=== PATIENT | female | born 1935 | race Caucasian/White ===

== ENCOUNTER 2020-12-27 12:25 | Outpatient (CLI) | payer MEDICARE, OTHER | END 2020-12-27 12:26 | disposition home or self-care (01) | LOC: CSHMRI 12:25 | PROVIDERS: ATTEND Orthopaedic Surgery | DX: S62.014A Nondisplaced fracture of distal pole of navicular [scaphoid] bone of right wrist, initial encounter for closed fracture (principal); M19.031 Primary osteoarthritis, right wrist; M24.231 Disorder of ligament, right wrist; M65.831 Other synovitis and tenosynovitis, right forearm; M25.431 Effusion, right wrist; M65.4 Radial styloid tenosynovitis [de Quervain] ==

== ENCOUNTER 2022-09-14 13:21 | Observation (INO) | payer MEDICARE, OTHER ==
[2022-09-14 14:06] LABS: #Basophils 0.1 10x3/uL (0.0-0.2); #Eosinphils 0.1 10x3/uL (0.0-0.5); #Monocytes 0.4 10x3/uL (0.0-1.1); #Neutrophils 4.4 10x3/uL (1.5-8.4); %Basophils 0.7 % (0.0-2.0); %Eosinophils 1.5 % (0.0-6.0); %Lymphocytes 42.4 % (18.0-47.0); %Neutrophils 50.2 % (40.0-75.0); Hemoglobin 13.5 g/dL (12.0-15.5); Mean Corpuscular HGB CONC 33.7 g/dL (32.0-36.0); Mean Corpuscular Hemoglobin 30.8 pg (27.0-33.0); Mean Corpuscular Volume 91.6 fl (81.6-98.3); Mean Platelet Volume 8.8 fl (7.4-10.4); Platelet Count 223 10x3/uL (150-450); RBC Distribution Width 13.2 % (11.5-14.5); Red Blood Cell (RBC) Count 4.38 10x6/uL (3.90-5.03); White Blood Cell (WBC) Count 8.7 10x3/uL (3.5-10.5)
[2022-09-14 14:24] LABS: ALT (SGPT) 16 U/L (8-55); AST (SGOT) 24 U/L (5-34); Albumin 4.5 g/dL (3.4-4.8); Alkaline Phosphatase 75 U/L (40-110); Anion Gap 15 mmol/L (10-20); BUN (Urea Nitrogen) 21 mg/dL (9.8-20.1); Bilirubin, Total 0.4 mg/dL (0.2-1.2); Calc. Creatinine Clearance 0 mL/min (70-130); Carbon Dioxide 23 mmol/L (23-31); Chloride 106 mmol/L (98-107); Estimated GFR 73; Globulin 2.2 g/dL (2.4-3.5); Glucose 96 mg/dL (83-110); Lipase 36 U/L (8-78); Potassium 4.1 mmol/L (3.5-5.1); Protein, Total 6.7 g/dL (5.8-8.1); Sodium 140 mmol/L (136-145)
[2022-09-14] MEDS ORDERED: Nitroglycerin 2% Ointment 1 INCH/1 GM Packet ONE (14:48)
[2022-09-14] MEDS ORDERED: Acetaminophen 325 MG TAB PO PRN (15:19)
[2022-09-14] MEDS ORDERED: Acetaminophen 650 MG Suppository PR PRN (15:19)
[2022-09-14] MEDS ORDERED: Ondansetron ODT 4 MG TAB PO PRN (15:19)
[2022-09-14] MEDS ORDERED: Ondansetron PF 4 MG/2 ML Vial IVP PRN (15:19)
[2022-09-14] MEDS ORDERED: Nitroglycerin 0.4 MG TAB (25 Tab Bottle) SL PRN (15:19)
[2022-09-14 16:40] VITALS: BMI 24.0
[2022-09-14 17:50] LABS: Troponin I Less than 0.010 ng/mL (< 0.028)
[2022-09-14 20:16] LABS: Troponin I Less than 0.010 ng/mL (< 0.028)
[2022-09-15 04:34] LABS: #Basophils 0.1 10x3/uL (0.0-0.2); #Eosinphils 0.2 10x3/uL (0.0-0.5); #Monocytes 0.5 10x3/uL (0.0-1.1); #Neutrophils 1.9 10x3/uL (1.5-8.4); %Basophils 1.1 % (0.0-2.0); %Eosinophils 3.2 % (0.0-6.0); %Lymphocytes 56.5 % (18.0-47.0); %Monocytes 7.5 % (0.0-10.0); %Neutrophils 31.4 % (40.0-75.0); Hemoglobin 11.8 g/dL (12.0-15.5); Mean Corpuscular HGB CONC 33.4 g/dL (32.0-36.0); Mean Corpuscular Hemoglobin 30.6 pg (27.0-33.0); Mean Corpuscular Volume 91.7 fl (81.6-98.3); Mean Platelet Volume 8.9 fl (7.4-10.4); Platelet Count 198 10x3/uL (150-450); RBC Distribution Width 13.3 % (11.5-14.5); Red Blood Cell (RBC) Count 3.85 10x6/uL (3.90-5.03); White Blood Cell (WBC) Count 6.2 10x3/uL (3.5-10.5)
[2022-09-15 04:47] LABS: Anion Gap 13 mmol/L (10-20); BUN (Urea Nitrogen) 19 mg/dL (9.8-20.1); Calc. Creatinine Clearance 58 mL/min (70-130); Calcium 8.8 mg/dL (7.8-10.44); Carbon Dioxide 23 mmol/L (23-31); Cardiac Risk 2.8 (Less than 4.5); Chloride 110 mmol/L (98-107); Cholesterol 141 mg/dl (< 200 Desired); Estimated GFR 83; Glucose 81 mg/dL (83-110); HDL Cholesterol 50 mg/dL (>60 Neg Risk); LDL Cholesterol, Calculated 75 mg/dL; Potassium 4.1 mmol/L (3.5-5.1); Sodium 142 mmol/L (136-145); Triglycerides 82 mg/dL (Less than 150)
[2022-09-15 05:50] LABS: Band 1 % (5-11); Eosinophils 2 % (0-10); Lymphocytes 50 % (21-51); Monocytes 10 % (0-10); Neutrophil 36 % (42-75); Reactive Lymphocytes 1 % (0-10)
[2022-09-15 05:51] LABS: Diff Comment (RBC Morph SCRN) NORMAL; Platelet Morphology Comment Appears Adequate
[2022-09-15] MEDS ORDERED: Aspirin Chewable 81 MG TAB PO SCH (09:00)
[2022-09-15 10:07] LABS: Magnesium 2.3 mg/dL (1.6-2.6)
[2022-09-15 12:49] VITALS: BP 131/62; TEMP 98.3
[2022-09-15 13:35] LABS: Hemoglobin A1c 5.4 % (4.0-6.0)
== END 2022-09-15 15:15 | disposition home or self-care (01) ==
LOC: CSHERS 13:21 → CSHTELE 16:20
PROVIDERS: ADMIT Internal Medicine; ATTEND Family Medicine
DX: R07.9 Chest pain, unspecified (principal); I10 Essential (primary) hypertension; E55.9 Vitamin D deficiency, unspecified; R73.9 Hyperglycemia, unspecified; H35.30 Unspecified macular degeneration; I87.2 Venous insufficiency (chronic) (peripheral); I25.10 Atherosclerotic heart disease of native coronary artery without angina pectoris; M48.061 Spinal stenosis, lumbar region without neurogenic claudication; M51.16 Intervertebral disc disorders with radiculopathy, lumbar region; M19.90 Unspecified osteoarthritis, unspecified site; Z20.822 Contact with and (suspected) exposure to COVID-19; Z87.01 Personal history of pneumonia (recurrent); Z86.16 Personal history of COVID-19; Z79.82 Long term (current) use of aspirin; Z79.899 Other long term (current) drug therapy; Z90.49 Acquired absence of other specified parts of digestive tract; Z98.890 Other specified postprocedural states
CPT/HCPCS: 71045; 80048; 80053; 80061; 83036; 83690; 83735; 84484 ×2; 85025 ×2; 85379; 93005; G0378 ×3; U0003; U0005; 36415

== ENCOUNTER 2024-07-13 13:13 | Outpatient (CLI) | payer MEDICARE, OTHER | END 2024-07-13 13:14 | disposition home or self-care (01) | LOC: CSHMAMMO 13:13 | PROVIDERS: ATTEND Internal Medicine | DX: Z12.31 Encounter for screening mammogram for malignant neoplasm of breast (principal); Z78.0 Asymptomatic menopausal state; M85.851 Other specified disorders of bone density and structure, right thigh; M85.852 Other specified disorders of bone density and structure, left thigh | CPT/HCPCS: 77063; 77067; 77080 ==